=== PATIENT | female | born 1970 | race Two or more races ===

== ENCOUNTER 2022-08-24 04:34 | Day surgery (SDC) | payer BC ==
[2022-08-18 14:23] VITALS: BMI 34.2
[2022-08-24 08:36] VITALS: TEMP 98
[2022-08-24 08:53] VITALS: RESP 16
[2022-08-24 09:31] VITALS: BP 112/62; PULSE 64
== END 2022-08-24 09:35 | disposition home or self-care (01) ==
LOC: JASU-ENDO 04:34
PROVIDERS: ATTEND Student in an Organized Health Care Education/Training Program
PROC: 0DBM8ZX Excision of Descending Colon, Via Natural or Artificial Opening Endoscopic, Diagnostic (ICD-10-PCS; 2022-08-24)
PROC: 0DBP8ZX Excision of Rectum, Via Natural or Artificial Opening Endoscopic, Diagnostic (ICD-10-PCS; 2022-08-24)
PROC: 0DBK8ZX Excision of Ascending Colon, Via Natural or Artificial Opening Endoscopic, Diagnostic (ICD-10-PCS; principal; 2022-08-24 08:00)
DX: D12.2 Benign neoplasm of ascending colon (principal); D12.4 Benign neoplasm of descending colon; K57.30 Diverticulosis of large intestine without perforation or abscess without bleeding; K64.8 Other hemorrhoids
CPT/HCPCS: 88305-TC